=== PATIENT | male | born 1995 | race Caucasian/White ===

== ENCOUNTER 2024-10-24 17:00 | Emergency (ER) | payer OTHER ==
[~2024-10-24] VITALS: Ht 167.6 cm; Wt 60.0 kg
[2024-10-24 17:19] VITALS: O2SAT 100
[2024-10-24 17:28] VITALS: BP 119/72; PULSE 90; RESP 16; TEMP 36.8; O2SAT 99
[2024-10-24 17:55] LABS: BASOPHILS % 0.4 % (0.0-2.0); DIFFERENTIAL COMMENT 0; EOSINOPHILS % 1.4 % (0.0-5.0); HEMATOCRIT. 43.3 % (42.0-52.0); HEMOGLOBIN. 14.6 g/dL (14.0-18.0); LYMPHOCYTES % 17.8 % (20.0-50.0); MEAN CORPUSCULAR HGB CONC 33.8 g/dL (31.0-37.0); MEAN CORPUSCULAR VOLUME 94.9 fL (80.0-94.0); MEAN PLATELET VOLUME 9.1 fl (7.4-10.4); MONOCYTES % 10.1 % (2.0-8.0); NEUTROPHILS % 70.3 % (40.0-76.0); PLATELET 237 x1000/uL (130-400); RED BLOOD CELL COUNT 4.56 mill/uL (4.7-6.1); RED CELL DISTRIBUTION WIDTH 12.8 % (11.6-14.6); WHITE BLOOD COUNT 9.9 x1000/uL (4.5-11.0)
[2024-10-24 18:00] LABS: CHLORIDE 104 mEq/L (98-107); POTASSIUM 3.8 mEq/L (3.5-5.1); SODIUM 139 mEq/L (136-145)
[2024-10-24 18:01] LABS: CALCIUM 9.9 mg/dL (8.7-10.4); CARBON DIOXIDE 27 mEq/L (21-32)
[2024-10-24 18:06] LABS: CREATININE 0.8 mg/dL (0.6-1.3); GLUCOSE 96 mg/dL (70-105); UREA NITROGEN BLOOD 7 mg/dL (9-23)
[2024-10-24 18:08] LABS: ALANINE AMINOTRANSFERASE 15 IU/L (10-49); ALBUMIN 4.5 g/dL (3.2-4.8); ASPARTATE AMINOTRANSFERASE 19 IU/L (<34); BILIRUBIN DIRECT 0.4 mg/dL (<=3.0); BILIRUBIN TOTAL 1.1 mg/dL (0.1-1.0); PROTEIN TOTAL 8.1 g/dL (6.0-8.3)
[2024-10-24] MEDS: IBUPROFEN 800MG TABLET PO NR (18:12)
[2024-10-24] MEDS: MAGNESIUM/ALUMINUM HYDROXIDE/SIMETHICONE 30ML UDC PO ONE (18:12)
[2024-10-24] MEDS: FAMOTIDINE 20MG TABLET PO ONE (18:13)
[2024-10-24] MEDS: ONDANSETRON 4MG ODT PO ONE (18:13)
[2024-10-24 18:47] LABS: CLARITY URINE CLOUDY (CLEAR); COLOR URINE YELLOW (YELLOW); GLUCOSE URINE NEGATIVE (NEGATIVE); KETONES URINE TRACE (NEGATIVE); LEUKOCYTE ESTERASE URINE NEGATIVE (NEGATIVE); NITRITE URINE NEGATIVE (NEGATIVE); OCCULT BLOOD URINE NEGATIVE (NEGATIVE); PROTEIN URINE NEGATIVE (NEGATIVE); SPECIFIC GRAVITY URINE 1.021 (1.005-1.030)
[2024-10-24 19:29] LABS: AMORPHOUS SEDIMENT URINE 1+ /lpf; BACTERIA URINE NONE SEEN; RBC URINE NONE SEEN /hpf (0-2); WBC URINE NONE SEEN /hpf (0-2)
[2024-10-24] MEDS ORDERED: PROT40 MT (20:31)
[2024-10-24] MEDS ORDERED: ACET-2708 MT (20:31)
== END 2024-10-24 21:12 | disposition home or self-care (01) ==
LOC: ER 17:00
DX: K29.70 Gastritis, unspecified, without bleeding (principal); F17.200 Nicotine dependence, unspecified, uncomplicated
CPT/HCPCS: 99284; 74176; 80076; 80048; 81003; 83690; 85025; 36415; Q0162

== ENCOUNTER 2025-02-06 16:43 | Inpatient (IN) | payer OTHER ==
[~2025-02-06] VITALS: Ht 162.6 cm; Wt 64.0 kg
[~2025-02-06 16:43] MED LIST: ACET-2708 MT; PROT40 MT
[2025-02-06 17:14] LABS: BASOPHILS % 0.5 % (0.0-2.0); EOSINOPHILS % 1.3 % (0.0-5.0); HEMATOCRIT. 47.1 % (42.0-52.0); HEMOGLOBIN. 15.9 g/dL (14.0-18.0); LYMPHOCYTES % 21.1 % (20.0-50.0); MEAN PLATELET VOLUME 8.8 fl (7.4-10.4); MONOCYTES % 11.2 % (2.0-8.0); NEUTROPHILS % 65.9 % (40.0-76.0); PLATELET 243 x1000/uL (130-400); RED BLOOD CELL COUNT 4.99 mill/uL (4.7-6.1); RED CELL DISTRIBUTION WIDTH 13.0 % (11.6-14.6)
[2025-02-06 17:27] LABS: CREATININE 1.2 mg/dL (0.6-1.3); UREA NITROGEN BLOOD 17 mg/dL (9-23)
[2025-02-06 17:28] LABS: TROPONIN I HIGH SENSITIVITY < 4 ng/L (3.0-53)
[2025-02-06] MEDS: CEFTRIAXONE 1GM/50ML 50 ML IV ONE (17:41)
[2025-02-06] MEDS: SODIUM CHLORIDE 0.9% (SEPSIS BOLUS) IV ONE (17:41)
[2025-02-06] MEDS: AZITHROMYCIN 500MG/250ML 250 ML IV ONE (18:07)
[2025-02-06 18:46] LABS: INR 1.0
[2025-02-06] MEDS ORDERED: ACETAMINOPHEN 325MG TABLET PO PRN (22:45)
[2025-02-06] MEDS ORDERED: ONDANSETRON HCL 4MG/2ML INJ IV PRN (22:45)
[2025-02-06] MEDS ORDERED: IPRATROPIUM/ALBUTEROL 0.5-3(2.5)MG/3ML NEB HHN PRN (22:45)
[2025-02-06] MEDS ORDERED: DOCUSATE SODIUM 100MG CAPSULE PO PRN (22:45)
[2025-02-07] VITALS (11 sets, daily range): BP systolic 109–134; BP diastolic 70–87; PULSE 65–108; RESP 16–18; TEMP 36.3–36.8; O2SAT 9–100
[2025-02-07] MEDS: SODIUM CHLORIDE 0.45% 1,000 ML IV SCH (02:31)
[2025-02-07 03:14] LABS: BG BASE EXCESS -2.3 mmol/L (-2.0-3.0); BG CARBOXYHEMOGLOBIN 0.8 % (0.5-1.5); BG DEOXYHEMOGLOBIN 1.2 % (0.0-5.0); BG HCO3 ACT 17.3 mmol/L (21.0-28.0); BG METHEMOGLOBIN 0.3 % (0.5-1.5); BG OXYGEN SATURATION 98.8 % (94.0-98.0); BG OXYHEMOGLOBIN 97.7 % (94.0-98.0); BG PCO2 19.8 mmHg (35.0-48.0); BG PH 7.560 (7.350-7.450); BG PO2 128.4 mmHg (83.0-108.0); BG SAMPLE SITE RIGHT BRACHIAL; BG TOTAL HEMOGLOBIN 14.7 g/dL (13.5-17.5); BG VENT MODE ROOM AIR
[2025-02-07 05:39] LABS: CREATINE KINASE MB FRACTION 1.3 ng/mL (0.5-3.6)
[2025-02-07 05:40] LABS: TROPONIN I HIGH SENSITIVITY < 4 ng/L (3.0-53)
[2025-02-07 05:46] LABS: T4 FREE 1.49 ng/dL (0.89-1.76)
[2025-02-07] MEDS: HYDRALAZINE HCL 50MG TABLET PO SCH (06:13)
[2025-02-07 07:27] LABS: *AMPHETAMINES SCREEN URINE NEGATIVE (NEGATIVE)
[2025-02-07 07:28] LABS: *BARBITURATES SCREEN URINE NEGATIVE (NEGATIVE); *BENZODIAZEPINES SCREEN URINE NEGATIVE (NEGATIVE); *COCAINE SCREEN URINE NEGATIVE (NEGATIVE); CANNABINOID URINE SCREEN PRESUMPTIVE POSITIVE (NEGATIVE); ECSTASY MDMA SCREEN URINE NEGATIVE (NEGATIVE); METHADONE URINE SCREEN NEGATIVE (NEGATIVE); OPIATES URINE SCREEN NEGATIVE (NEGATIVE); PHENCYCLIDINE URINE SCREEN NEGATIVE (NEGATIVE)
[2025-02-07 07:50] LABS: CLARITY URINE CLEAR (CLEAR); COLOR URINE YELLOW (YELLOW); GLUCOSE URINE NEGATIVE (NEGATIVE); KETONES URINE NEGATIVE (NEGATIVE); LEUKOCYTE ESTERASE URINE NEGATIVE (NEGATIVE); NITRITE URINE NEGATIVE (NEGATIVE); OCCULT BLOOD URINE NEGATIVE (NEGATIVE); PH URINE 6.0 (4.5-8.0); PROTEIN URINE NEGATIVE (NEGATIVE); SPECIFIC GRAVITY URINE 1.020 (1.005-1.030); UROBILINOGEN URINE 0.2 E.U./dL (0.2-1.0)
[2025-02-07] MEDS: IPRATROPIUM/ALBUTEROL 0.5-3(2.5)MG/3ML NEB HHN SCH (08:02)
[2025-02-07] MEDS: PANTOPRAZOLE SODIUM 40 MG/VIAL IV SCH (08:44)
[2025-02-07] MEDS: ENOXAPARIN 40MG/0.4ML SYR SUBCUT SCH (08:44)
[2025-02-07] MEDS: ASPIRIN 81MG TABLET PO SCH (08:44)
[2025-02-07] MEDS ORDERED: IOHEXOL-350 100 ML BOTTLE ONE (15:42)
[2025-02-07] MEDS: CEFTRIAXONE 1GM/50ML 50 ML IV SCH (17:05)
[2025-02-07] MEDS: AZITHROMYCIN 500MG/250ML 250 ML IV SCH (17:06)
[2025-02-07 22:07] LABS: CREATINE KINASE MB FRACTION 1.0 ng/mL (0.5-3.6); TROPONIN I HIGH SENSITIVITY < 4 ng/L (3.0-53)
[2025-02-08] VITALS (11 sets, daily range): BP systolic 18–130; BP diastolic 75–124; PULSE 18–100; RESP 16–18; TEMP 36.6–37.1; O2SAT 83–100
[2025-02-08 09:20] LABS: CREATININE 1.0 mg/dL (0.6-1.3); UREA NITROGEN BLOOD 10 mg/dL (9-23)
[2025-02-08 09:24] LABS: BASOPHILS % 0.6 % (0.0-2.0); EOSINOPHILS % 1.4 % (0.0-5.0); HEMATOCRIT. 41.8 % (42.0-52.0); HEMOGLOBIN. 14.4 g/dL (14.0-18.0); LYMPHOCYTES % 25.8 % (20.0-50.0); MEAN PLATELET VOLUME 9.6 fl (7.4-10.4); MONOCYTES % 13.7 % (2.0-8.0); NEUTROPHILS % 58.5 % (40.0-76.0); PLATELET 224 x1000/uL (130-400); RED BLOOD CELL COUNT 4.37 mill/uL (4.7-6.1); RED CELL DISTRIBUTION WIDTH 13.3 % (11.6-14.6)
[2025-02-08] MEDS ORDERED: FLUT9.9S BOTHNSTRLS (13:28)
[2025-02-08] MEDS ORDERED: AZIT500T8 MT (13:28)
[2025-02-08] MEDS: FLUTICASONE PROPIONATE 50MCG/SPRAY BOTTLE BOTHNSTRLS SCH (14:52)
[2025-02-08] MEDS ORDERED: NICO-645 TP (16:43)
[2025-02-08] MEDS: ACETAMINOPHEN 325MG TABLET PO PRN (17:11)
== END 2025-02-08 18:47 | disposition home or self-care (01) | DRG 139 ==
LOC: ER 16:43 → CANBEDREQ 18:45 → 8WST 22:02
PROVIDERS: ADMIT Internal Medicine; ATTEND Internal Medicine
DX: J18.9 Pneumonia, unspecified organism (principal); E87.20 Acidosis, unspecified; E87.3 Alkalosis; I24.9 Acute ischemic heart disease, unspecified; E83.52 Hypercalcemia; I10 Essential (primary) hypertension; F17.210 Nicotine dependence, cigarettes, uncomplicated; F12.90 Cannabis use, unspecified, uncomplicated
CPT/HCPCS: 36415; 36600; 71045; 71275; 80048; 80305; 81003; 82330; 82375; 82550; 82553; 82805; 83605; 83880; 84145; 84439; 84443; 84480; 84484; 85025; 85379; 93005; 94070; 94640; 94664; 98960; 99291; A4606; J0456; J0696; J1650; J2470; J7030; Q9967

== ENCOUNTER 2025-02-16 15:52 | Inpatient (IN) | payer OTHER ==
[~2025-02-16] VITALS: Ht 167.6 cm; Wt 63.3 kg
[~2025-02-16 15:52] MED LIST changes: +AZIT500T8 MT; +FLUT9.9S BOTHNSTRLS; +NICO-645 TP
[2025-02-16] MEDS: SODIUM CHLORIDE 0.9% 1,000 ML IV ONE (16:40)
[2025-02-16] MEDS: CEFTRIAXONE 1GM/50ML 50 ML IV ONE (16:43)
[2025-02-16 17:16] LABS: BASOPHILS % 0.9 % (0.0-2.0); EOSINOPHILS % 0.7 % (0.0-5.0); HEMATOCRIT. 42.5 % (42.0-52.0); HEMOGLOBIN. 14.6 g/dL (14.0-18.0); LYMPHOCYTES % 27.8 % (20.0-50.0); MEAN PLATELET VOLUME 9.3 fl (7.4-10.4); MONOCYTES % 9.5 % (2.0-8.0); NEUTROPHILS % 61.1 % (40.0-76.0); PLATELET 341 x1000/uL (130-400); RED BLOOD CELL COUNT 4.48 mill/uL (4.7-6.1); RED CELL DISTRIBUTION WIDTH 12.6 % (11.6-14.6)
[2025-02-16 17:27] LABS: INR 1.0
[2025-02-16 17:31] LABS: CREATININE 1.0 mg/dL (0.6-1.3)
[2025-02-16 17:32] LABS: UREA NITROGEN BLOOD 11 mg/dL (9-23)
[2025-02-16 17:33] LABS: ASPARTATE AMINOTRANSFERASE 23 IU/L (<34); BILIRUBIN DIRECT 0.2 mg/dL (<=3.0)
[2025-02-16 17:34] LABS: BILIRUBIN TOTAL 0.7 mg/dL (0.1-1.0); PROTEIN TOTAL 8.3 g/dL (6.0-8.3); TROPONIN I HIGH SENSITIVITY < 4 ng/L (3.0-53)
[2025-02-16] MEDS ORDERED: ACETAMINOPHEN 325MG TABLET PO PRN (19:45)
[2025-02-16] MEDS ORDERED: DOCUSATE SODIUM 100MG CAPSULE PO PRN (19:45)
[2025-02-16] MEDS ORDERED: DIPHENHYDRAMINE 50MG/ML VIAL IV PRN (19:45)
[2025-02-16] MEDS ORDERED: GUAIFENESIN 200MG/10ML SUGAR FREE UDC PO PRN (19:45)
[2025-02-16] MEDS ORDERED: MAGNESIUM/ALUMINUM HYDROXIDE/SIMETHICONE 30ML UDC PO PRN (19:45)
[2025-02-16 20:00] VITALS: BP 136/88; PULSE 83; RESP 20; TEMP 36.3; O2SAT 100
[2025-02-16] MEDS ORDERED: POTASSIUM CHLORIDE 40 MEQ in DEXT 5% WATER 230 ML IV ONE (20:00)
[2025-02-16] MEDS: DEXT 5%/0.9% NACL 1,000 ML IV SCH (20:20)
[2025-02-16 20:52] LABS: PHOSPHORUS 1.2 mg/dL (2.5-4.9)
[2025-02-16 22:24] LABS: BG BASE EXCESS -0.6 mmol/L (-2.0-3.0); BG CARBOXYHEMOGLOBIN 0.4 % (0.5-1.5); BG DEOXYHEMOGLOBIN 0.8 % (0.0-5.0); BG FLOW(L/min) 2.00 L/min; BG FRACTION INSPIRED OXYGEN 28; BG HCO3 ACT 16.2 mmol/L (21.0-28.0); BG METHEMOGLOBIN 0.3 % (0.5-1.5); BG OXYGEN SATURATION 99.2 % (94.0-98.0); BG OXYHEMOGLOBIN 98.5 % (94.0-98.0); BG PCO2 14.4 mmHg (35.0-48.0); BG PH 7.670 (7.350-7.450); BG PO2 137.8 mmHg (83.0-108.0); BG SAMPLE SITE RIGHT BRACHIAL; BG TOTAL HEMOGLOBIN 14.7 g/dL (13.5-17.5); BG VENT MODE NASAL CANNULA
[2025-02-16] MEDS ORDERED: IOHEXOL-350 100 ML BOTTLE ONE (22:29)
[2025-02-16] MEDS: KCL 20MEQ/100ML X 2 FOR TOTAL KCL 40MEQ/200ML IV SCH (22:44)
[2025-02-16 23:23] VITALS: BP 136/88; PULSE 83; RESP 20; TEMP 36.3624
[2025-02-16] MEDS: HYDROMORPHONE HCL/PF 2MG/ML INJ IV NR (23:43)
[2025-02-17] VITALS: BP 124/89; PULSE 82; RESP 20; TEMP 36.4; O2SAT 100
[2025-02-17] MEDS ORDERED: POTASSIUM PHOSPHATE 20 MMOL in DEXT 5% WATER 243.3333 ML IV NR (01:00)
[2025-02-17] MEDS: ONDANSETRON HCL 4MG/2ML INJ IV PRN (01:38)
[2025-02-17 01:51] LABS: CLARITY URINE CLEAR (CLEAR); COLOR URINE YELLOW (YELLOW); GLUCOSE URINE NEGATIVE (NEGATIVE); KETONES URINE NEGATIVE (NEGATIVE); LEUKOCYTE ESTERASE URINE NEGATIVE (NEGATIVE); NITRITE URINE NEGATIVE (NEGATIVE); OCCULT BLOOD URINE NEGATIVE (NEGATIVE); PH URINE >=9.0 (4.5-8.0); PROTEIN URINE TRACE (NEGATIVE); SPECIFIC GRAVITY URINE 1.043 (1.005-1.030); UROBILINOGEN URINE 0.2 E.U./dL (0.2-1.0)
[2025-02-17 02:13] LABS: CREATININE 0.9 mg/dL (0.6-1.3)
[2025-02-17 02:14] LABS: UREA NITROGEN BLOOD 11 mg/dL (9-23)
[2025-02-17 02:37] LABS: *AMPHETAMINES SCREEN URINE NEGATIVE (NEGATIVE); *BARBITURATES SCREEN URINE NEGATIVE (NEGATIVE); *BENZODIAZEPINES SCREEN URINE NEGATIVE (NEGATIVE); *COCAINE SCREEN URINE PRESUMPTIVE POSITIVE (NEGATIVE); CANNABINOID URINE SCREEN PRESUMPTIVE POSITIVE (NEGATIVE); ECSTASY MDMA SCREEN URINE NEGATIVE (NEGATIVE); METHADONE URINE SCREEN NEGATIVE (NEGATIVE); OPIATES URINE SCREEN NEGATIVE (NEGATIVE); PHENCYCLIDINE URINE SCREEN NEGATIVE (NEGATIVE)
[2025-02-17 03:10] LABS: SQUAMOUS EPITHELIAL CELL URINE FEW /lpf (RARE/1+)
[2025-02-17 03:11] LABS: BACTERIA URINE NONE SEEN; RBC URINE 0-2 /hpf (0-2); WBC URINE 0-2 /hpf (0-2)
[2025-02-17 04:00] VITALS: BP 118/75; PULSE 79; RESP 20; TEMP 36.4; O2SAT 100
[2025-02-17 07:36] LABS: CREATININE 1.0 mg/dL (0.6-1.3); UREA NITROGEN BLOOD 11 mg/dL (9-23)
[2025-02-17 07:37] LABS: BASOPHILS % 1.0 % (0.0-2.0); EOSINOPHILS % 2.9 % (0.0-5.0); HEMATOCRIT. 39.1 % (42.0-52.0); HEMOGLOBIN. 13.4 g/dL (14.0-18.0); LYMPHOCYTES % 21.8 % (20.0-50.0); MEAN PLATELET VOLUME 8.8 fl (7.4-10.4); MONOCYTES % 12.9 % (2.0-8.0); NEUTROPHILS % 61.4 % (40.0-76.0); PLATELET 286 x1000/uL (130-400); RED BLOOD CELL COUNT 4.05 mill/uL (4.7-6.1); RED CELL DISTRIBUTION WIDTH 12.7 % (11.6-14.6)
[2025-02-17 07:40] LABS: T4 FREE 1.22 ng/dL (0.89-1.76)
[2025-02-17 08:00] VITALS: BP 127/82; PULSE 78; RESP 16; TEMP 36.3; O2SAT 100
[2025-02-17 08:54] LABS: BG BASE EXCESS -4.0 mmol/L (-2.0-3.0); BG CARBOXYHEMOGLOBIN 0.6 % (0.5-1.5); BG DEOXYHEMOGLOBIN 1.1 % (0.0-5.0); BG FLOW(L/min) 2.00 L/min; BG FRACTION INSPIRED OXYGEN 28; BG HCO3 ACT 17.6 mmol/L (21.0-28.0); BG METHEMOGLOBIN 0.1 % (0.5-1.5); BG OXYGEN SATURATION 98.9 % (94.0-98.0); BG OXYHEMOGLOBIN 98.2 % (94.0-98.0); BG PCO2 24.3 mmHg (35.0-48.0); BG PH 7.478 (7.350-7.450); BG PO2 141.3 mmHg (83.0-108.0); BG SAMPLE SITE LEFT RADIAL; BG TOTAL HEMOGLOBIN 14.1 g/dL (13.5-17.5); BG VENT MODE NASAL CANNULA
[2025-02-17 12:00] VITALS: BP 116/73; PULSE 68; RESP 15; TEMP 36.3; O2SAT 100
[2025-02-17] MEDS: ACETAMINOPHEN 325MG TABLET PO PRN (13:40)
[2025-02-17 16:00] VITALS: BP 122/80; PULSE 71; RESP 16; TEMP 36.2; O2SAT 100
[2025-02-17] MEDS: IPRATROPIUM/ALBUTEROL 0.5-3(2.5)MG/3ML NEB HHN PRN (20:40)
[2025-02-17 20:41] VITALS: PULSE 70; RESP 20; O2SAT 98
[2025-02-18] VITALS: BP 134/83; PULSE 74; RESP 17; TEMP 36.2; O2SAT 98
[2025-02-18 04:00] VITALS: BP 122/80; PULSE 63; RESP 19; TEMP 36.3; O2SAT 100
[2025-02-18 08:00] VITALS: BP 126/85; PULSE 96; RESP 17; TEMP 36.3; O2SAT 99
[2025-02-18 10:53] LABS: BASOPHILS % 0.6 % (0.0-2.0); EOSINOPHILS % 3.2 % (0.0-5.0); HEMATOCRIT. 40.0 % (42.0-52.0); HEMOGLOBIN. 13.6 g/dL (14.0-18.0); LYMPHOCYTES % 25.6 % (20.0-50.0); MEAN PLATELET VOLUME 8.9 fl (7.4-10.4); MONOCYTES % 7.2 % (2.0-8.0); NEUTROPHILS % 63.4 % (40.0-76.0); PLATELET 279 x1000/uL (130-400); RED BLOOD CELL COUNT 4.18 mill/uL (4.7-6.1); RED CELL DISTRIBUTION WIDTH 12.6 % (11.6-14.6)
[2025-02-18 11:13] LABS: CREATININE 0.9 mg/dL (0.6-1.3)
[2025-02-18 11:14] LABS: UREA NITROGEN BLOOD 8 mg/dL (9-23)
[2025-02-18 12:00] VITALS: BP 127/79; PULSE 70; RESP 16; TEMP 36.3; O2SAT 97
[2025-02-18 16:00] VITALS: BP 118/77; PULSE 75; RESP 16; TEMP 36.1; O2SAT 99
[2025-02-18] MEDS ORDERED: AZIT500T8 MT (16:42)
[2025-02-18 17:52] VITALS: BP 118/77; PULSE 95; TEMP 97; O2SAT 99
== END 2025-02-18 10:15 | disposition home or self-care (01) | DRG 816 ==
LOC: ER 15:52 → 6WST 18:34 → EDBEDREQTM 18:56 → EDBEDREQ 18:56 → ENRESERV 19:06
PROVIDERS: ADMIT Hospitalist; ATTEND Hospitalist
DX: T40.5X1A Poisoning by cocaine, accidental (unintentional), initial encounter (principal); J96.00 Acute respiratory failure, unspecified whether with hypoxia or hypercapnia; E87.3 Alkalosis; E83.39 Other disorders of phosphorus metabolism; T40.711A Poisoning by cannabis, accidental (unintentional), initial encounter; J68.0 Bronchitis and pneumonitis due to chemicals, gases, fumes and vapors; E87.6 Hypokalemia; E83.52 Hypercalcemia; F14.10 Cocaine abuse, uncomplicated; F17.210 Nicotine dependence, cigarettes, uncomplicated; F12.10 Cannabis abuse, uncomplicated; J45.909 Unspecified asthma, uncomplicated; Z87.01 Personal history of pneumonia (recurrent); Y92.89 Other specified places as the place of occurrence of the external cause
CPT/HCPCS: 36415; 36600; 71045; 71275; 80048; 80076; 80305; 81003; 82375; 82550; 82805; 83605; 83735; 83880; 84100; 84145; 84439; 84443; 84484; 85025; 85379; 93005; 94070; 94640; 94664; 96374; 98960; 99291; G0378; J0696; J1171; J2405; J3480; J3490; J7030; J7060; Q9967